=== PATIENT | male | born 1995 | race Caucasian/White ===

== ENCOUNTER 2017-07-17 15:33 | Emergency (ER) | payer BC, SELFPAY ==
[~2017-07-17 15:33] MED LIST: Iopamidol 370 76% 100 ML VIAL ONE
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
== END 2017-07-17 18:12 | disposition home or self-care (01) ==
LOC: SCSER 15:33
DX: S20.212A Contusion of left front wall of thorax, initial encounter (principal); S60.511A Abrasion of right hand, initial encounter; S80.812A Abrasion, left lower leg, initial encounter; S70.312A Abrasion, left thigh, initial encounter; R51 Headache; V29.9XXA Motorcycle rider (driver) (passenger) injured in unspecified traffic accident, initial encounter
CPT/HCPCS: 70450; 71046; 71260